=== PATIENT | female | born 1960 | race African-American/Black ===

== ENCOUNTER 2017-04-04 09:15 | Day surgery (SDC) | payer OTHER ==
[~2017-04-04] VITALS: Ht 157.5 cm; Wt 72.6 kg
[~2017-04-04 09:15] MED LIST: AMLODIPINE-BEN1 EAC3 PO; BENAZEPRIL HCL20 MG PO; CLINORIL200 MG PO; ESTRADIOL0.5 MG PO; FLEXERIL10 MG PO; HARVONI 90-4001 EACH PO; LYRICA75 MG PO; NOHOMEMEDS; NORVASC5 MG PO; PERCOCET 10-321 EACH PO; TYLENOL WITH C1 EACH PO
[2017-04-04] MEDS ORDERED: OXYCODONE HCL10 MG PO (09:36)
== END 2017-04-04 10:25 | disposition home or self-care (01) ==
LOC: PAIN 09:15 → SDC 09:30 → PAIN 10:25
DX: M46.1 Sacroiliitis, not elsewhere classified (principal); M53.3 Sacrococcygeal disorders, not elsewhere classified; M47.26 Other spondylosis with radiculopathy, lumbar region; M51.16 Intervertebral disc disorders with radiculopathy, lumbar region; I10 Essential (primary) hypertension; F17.210 Nicotine dependence, cigarettes, uncomplicated; B19.20 Unspecified viral hepatitis C without hepatic coma
CPT/HCPCS: J1030; J2250; J3010; S0020